=== PATIENT | female | born 1990 | race Caucasian/White ===

== ENCOUNTER → 2017-11-23 | Outpatient (CLI) | payer OTHER | LOC: COL.RAD 08:30 | DX: M25.552 Pain in left hip (principal) ==

== ENCOUNTER → 2017-11-25 | Outpatient (CLI) | payer OTHER ==
[~2017-11-25] MED LIST: CEPHALEXIN500 M1 PO; CORGARD20 MG PO; LAMICTAL 25MG T25 MG PO; MULTI VITAMINS1 TAB PO; NEURONTIN400 MG/CAP PO; PRILOSEC 20MG20 MG PO
== END ==
LOC: COL.RAD 11:18
DX: M25.552 Pain in left hip (principal)
CPT/HCPCS: J3301; Q9967

== ENCOUNTER 2017-12-09 11:06 | Day surgery (SDC) | payer OTHER ==
[~2017-12-09] VITALS: Ht 165.1 cm; Wt 75.8 kg
[2017-12-09] MEDS ORDERED: NEURONTIN400 MG/CAP PO (11:24)
[2017-12-09] MEDS ORDERED: LAMICTAL 25MG T25 MG PO (11:25)
[2017-12-09] MEDS ORDERED: MULTI VITAMINS1 TAB PO (11:26)
[2017-12-09] MEDS ORDERED: PRILOSEC 20MG20 MG PO (11:27)
[2017-12-09] MEDS ORDERED: CORGARD20 MG PO (11:34)
[2017-12-09 11:35] VITALS: BP 118/60; PULSE 74; TEMP 98.1
[2017-12-09] MEDS ORDERED: CEPHALEXIN500 M1 PO (11:59)
[2017-12-09 12:31] VITALS: BP 109/68; PULSE 63; TEMP 98.2
== END 2017-12-09 15:00 | disposition home or self-care (01) ==
LOC: COL.CAR 11:06
DX: R55 Syncope and collapse (principal); R06.02 Shortness of breath; R07.89 Other chest pain; F17.220 Nicotine dependence, chewing tobacco, uncomplicated; Z80.0 Family history of malignant neoplasm of digestive organs; Z82.49 Family history of ischemic heart disease and other diseases of the circulatory system; Z80.1 Family history of malignant neoplasm of trachea, bronchus and lung; Z80.8 Family history of malignant neoplasm of other organs or systems
CPT/HCPCS: 27124; C1764

== ENCOUNTER 2018-09-17 19:08 | Emergency (ER) | payer OTHER ==
[~2018-09-17] VITALS: Ht 165.1 cm; Wt 77.3 kg
[~2018-09-17 19:08] MED LIST changes: +ASPI325T6 PO; +MOBIC15 MG PO; +PERCOCET 325 MG1 TA2 PO; +PROTONIX 40MG T40 MG PO; +ZOFRAN 4MG T4 MG/TAB PO
[2018-09-17 19:52] VITALS: BP 123/67; TEMP 98.6
[2018-09-17 20:14] LABS: COLLECTION METHOD CLEAN CATCH
[2018-09-17 20:43] LABS: MUCOUS Present /lpf; PH 5 (5-8); SQUAMOUS EPITHELIAL 0-2 /hpf; URINE APPEARANCE Clear; URINE BACTERIA None Seen /hpf; URINE BILIRUBIN Negative (NEGATIVE); URINE BLOOD 1+ (NEGATIVE); URINE COLOR Yellow; URINE GLUCOSE Negative (NEGATIVE); URINE KETONE Negative (NEGATIVE); URINE LEUKOCYTE ESTERASE Negative (NEGATIVE); URINE NITRATE Negative (NEGATIVE); URINE PROTEIN(semi-quant) Negative (NEGATIVE); URINE UROBILINOGEN Negative (NEGATIVE)
[2018-09-17 22:28] LABS: BASO % 0.3 % (0.0-2.0); EOS # 0.2 (0.0-0.7); EOS % 1.7 % (0-4.0); GRAN # 5.8 (1.4-6.5); GRAN % 60.1 % (42.2-75.2); HEMATOCRIT 37.8 % (37.0-47.0); HEMOGLOBIN 12.4 g/dl (12.5-16.0); LYMPH # 2.7 (1.2-3.4); LYMPH % 27.9 % (20.0-51.0); MEAN CELL VOLUME 89 fl (80.0-100.0); MEAN CORPUSCULAR HEMOGLOBIN 29 pg (27.0-31.0); MEAN CORPUSCULAR HGB CONC 33 g/dl (33.0-37.0); MEAN PLATELET VOLUME 10.8 fl (7.4-10.4); MONO # 0.9 (0.1-0.6); MONO % 9.7 % (1.7-9.3); PLATELET COUNT 240 K/mm3 (130-400); RED BLOOD COUNT 4.23 M/mm3 (4.10-5.30); REDCELL DISTRIBUTION WIDTH-CV 13.9 % (11.5-14.5)
[2018-09-17 22:54] LABS: C-REACTIVE PROTEIN 0.6 mg/dL (0.0-0.9)
[2018-09-17 23:26] LABS: ALBUMIN 3.6 gm/dL (3.5-5.0); BILIRUBIN,TOTAL 0.4 mg/dL (0.0-1.0); CALCIUM 8.5 mg/dL (8.4-10.2); CREATININE, serum 0.71 (0.52-1.25); POTASSIUM 3.2 mmol/L (3.4-5.0); TOTAL PROTEIN 6.3 gm/dL (6.4-8.2)
[2018-09-18 02:05] VITALS: PULSE 74
== END 2018-09-18 02:05 | disposition home or self-care (01) ==
LOC: COL.ER 19:08
PROVIDERS: Emergency Medicine
DX: N80.1 Endometriosis of ovary (principal); Z87.42 Personal history of other diseases of the female genital tract
CPT/HCPCS: J0780; J1170; J7030